=== PATIENT | female | born 1965 | race Two or more races ===

== ENCOUNTER 2017-02-14 23:11 | Emergency (ER) | payer OTHER ==
[~2017-02-14] VITALS: Ht 162.6 cm; Wt 133.4 kg
[2017-02-14] MEDS ORDERED: HYDR12.53 PO (23:43)
[2017-02-14] MEDS ORDERED: LAMO5TB.2 PO (23:43)
[2017-02-14] MEDS ORDERED: ESCI5TAB7 PO (23:45)
[2017-02-14] MEDS ORDERED: TRAZADONE (23:45)
[2017-02-14] MEDS ORDERED: CLON-364 PO (23:47)
[2017-02-14] MEDS ORDERED: LISI-424 PO (23:47)
[2017-02-15] MEDS ORDERED: SODIUM CHLORIDE 0.9% 1,000ML IVBOLUS ONE
[2017-02-15] MEDS ORDERED: METOCLOPRAMIDE 5 MG/ML, 2ML IVPush ONE
[2017-02-15] MEDS ORDERED: SODIUM CHLORIDE FLUSH 10ML SYR IVF ONE
[2017-02-15] MEDS ORDERED: METOCLOPRAMIDE 5 MG/ML, 2ML ONE (00:04)
[2017-02-15 00:09] LABS: HEMOGLOBIN 13.5 g/dL (11.7-16.4); WHITE BLOOD COUNT 8.9 x10^3/uL (3.4-10)
[2017-02-15 00:22] LABS: ASPARTATE AMINO TRANSFERASE 15 U/L (15-37); BLOOD UREA NITROGEN 20 mg/dL (7-18)
[2017-02-15 00:44] LABS: PATH.CAST-FLAG NOT PRESENT; SPERM-FLAG NOT PRESENT; SRC-FLAG NOT PRESENT; XTAL-FLAG NOT PRESENT; YLC-FLAG NOT PRESENT
[2017-02-15] MEDS ORDERED: KETOROLAC 30 MG/1 ML IVPush ONE (01:00)
[2017-02-15] MEDS ORDERED: KETOROLAC 30 MG/1 ML ONE (01:06)
[2017-02-15 01:39] VITALS: BP 141/53
== END 2017-02-15 01:41 | disposition home or self-care (01) ==
LOC: ED 02-15 01:05
DX: G43.909 Migraine, unspecified, not intractable, without status migrainosus (principal); M62.81 Muscle weakness (generalized); F31.9 Bipolar disorder, unspecified; F41.9 Anxiety disorder, unspecified
CPT/HCPCS: 36415; 70450; 80053; 80307; 81001; 82962; 85025; 87086; 93005; 96361; 96374; 96375; 99285; J1885; J2765; J7030; G0479